=== PATIENT | male | born 1995 | race Asian ===

== ENCOUNTER 2022-08-31 10:34 | Outpatient (CLI) | payer OTHER, SELFPAY ==
[2022-08-31 13:50] LABS: Amphetamine Screen Urine Negative (Negative); Barbiturate Screen Urine Negative (Negative); Benzodiazepines Screen Urine Negative (Negative); Cannabinoid Screen Urine POSITIVE (Negative); Cocaine Screen Urine Negative (Negative); Methadone Screen Urine Negative (Negative); Methamphetamines Screen Urine Negative (Negative); Opiate Screen Urine Negative (Negative); Oxycodone Screen Urine Negative (Negative); Phencyclidine Screen Urine Negative (Negative); Tricyclic Antidepressant Urine Negative (Negative)
== END 2022-08-31 10:35 | disposition home or self-care (01) ==
LOC: FRMREF 10:36
PROVIDERS: PCP Family Medicine; Visit Provider Family Medicine
DX: R51.9 Headache, unspecified (principal); I10 Essential (primary) hypertension
CPT/HCPCS: 80306

== ENCOUNTER 2022-09-08 08:44 | Outpatient (CLI) | payer OTHER, MEDICAID, SELFPAY ==
--- NOTE | 2022-09-08 09:00 | CRLHL7_ITS ---
For Patients: As a result of the Century Cures Act, medical imaging exams and procedure reports are released immediately into your electronic medical record. You may view this report before your referring provider. If you have questions, please contact your health care provider. INDICATION: HEADACHES COMPARISON: none TECHNIQUE: A CT volumetric acquisition was performed of the brain without IV contrast. Please note that all CT scans at this facility use dose modulation, iterative reconstruction, and/or weight-based dosing when appropriate to reduce radiation dose to as low as reasonably achievable. FINDINGS: The CT images reveal a normal appearance of the cerebral ventricles and basal cisterns. There is no evidence of intracranial hemorrhage, tissue infarction or mass effect. The mastoid air cells and middle ear cavities are clear. The calvarium appears intact. Mild amount of mucus within the left sphenoid sinus noted. IMPRESSION: Normal CT brain. Left sphenoid sinus disease. Please note that all CT scans at this facility use dose modulation, iterative reconstruction, and/or weight-based dosing when appropriate to reduce radiation dose to as low as reasonably achievable. Dictated by Lacho Ceron MD @ 09/08/2022 9:30:25 AM (Electronically Signed)
== END 2022-09-08 08:45 | disposition home or self-care (01) ==
PROVIDERS: PCP Family Medicine; Visit Provider Family Medicine
DX: R51.9 Headache, unspecified (principal)
CPT/HCPCS: 70450

== ENCOUNTER 2023-10-07 14:38 | Emergency (ER) | payer MEDICAID, SELFPAY ==
[2023-10-07 14:48] VITALS: BP 163/82; PULSE 146; RESP 20; TEMP 37.3; O2SAT 97; BMI 25.8
--- NOTE | 2023-10-07 15:16 | ED.PSYCH ---
HPI - Psych General Chief Complaint: Psychiatric Problem/Disorder Stated Complaint: Suicidal Time Seen by Provider: 10/07/23 14:52 History of Present Illness HPI Narrative: This 28-year-old male comes in for psychiatric evaluation. He lost his arm in a traumatic accident about a year ago and has trouble dealing with this loss. Today he was rather impulsive and endorsed suicidal thoughts but no specific plan. However he did take a knife and hold it up next to his neck. He does not have any intent to harm others. He does take 5-7 alcohol drinks a week. 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 He has not taken his psychotropic medicines, buspirone and bupropion, for the past 6 months. He does state that he has anxiety. He reports that he is sleeping okay at night. He denies having any auditory or visual hallucinations. Related Data Home Medications Medication Instructions Recorded Confirmed amlodipine 5 mg tablet 5 mg PO QDAY 08/31/22 10/07/23 bupropion HCl 300 mg 24 hr tablet, tab PO 08/31/22 08/31/22 extended release buspirone 15 mg tablet 15 mg PO BID 08/31/22 10/07/23 losartan 100 1 tab PO QDAY 08/31/22 10/07/23 mg-hydrochlorothiazide 25 mg tablet pregabalin 75 mg capsule 75 mg PO BID 08/31/22 10/07/23 Previous Rx's Medication Instructions Recorded lorazepam 1 mg tablet (Ativan) 1 mg PO BID PRN #14 tabs 10/07/23 Allergies Allergy/AdvReac Type Severity Reaction Status Date / Time lisinopril AdvReac Severe cough Verified 08/31/22 10:09 amoxicillin AdvReac Severe diarrhea Uncoded 08/31/22 10:09 Review of Systems Status of ROS: Reports: 10 or more systems reviewed and unremarkable except as noted in History and below Narrative: Constitutional: No fevers, no weight gain or loss. Eyes: No discharge. No vision changes. HENT: No congestion, no sore throat, no ear pain. Cardiovascular: No chest pain, no palpitations. Respiratory: No shortness of breath, no wheezes, no cough. Gastrointestinal: No abdominal pain, no vomiting, no diarrhea. Genitourinary: No dysuria, no hematuria. Musculoskeletal: Normal range of motion. Skin: No rashes, no pruritis. Neurological: No dizziness, weakness, sensory change, speech change. Endo/Heme/Allergies: No bruising or bleeding. No polydipsia. Pysch: Suicidal thoughts as described above. He does report anxiety. No insomnia. All other systems reviewed and are negative. PFSH [facility] Social History Smoking Status: Never smoker How often do you have a drink containing alcohol: 4 or more times a week How many standard drinks containing alcohol do you have on a typical day: 1 or 2 AUDIT-C Alcohol total score: 4 Non-prescribed substance use: marijuana (any form) Non-prescribed substance use details: medical marijuana use Exam Narrative: Exam Narrative: Constitutional: Well-developed, well-nourished. HEENT: Normocephalic, atraumatic. Neck: Normal range of motion. Nontender. Supple. Heart: Regular. No murmurs. Normal rate. Intact distal pulses. Lungs: Clear to auscultation. No chest discomfort. No wheezes, rhonchi, or rales. Abdomen: Normal bowel sounds. Nontender. No rebound tenderness. Genitalia: Deferred. Back: No midline tenderness. Normal range of motion. Extremities: Normal range of motion. 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 Skin: Intact. No rash. Warm. No erythema or pallor. Neurologic: No altered sensation. No weakness. Alert and oriented. Psychiatric: Anxiety and depression with suicidal thoughts. Nursing notes and vitals signs are reviewed. Const: Vital Signs, click to edit/add: Vital Signs - 24 hr 10/07/23 14:48 Temperature 99.2 F Pulse Rate [Pulse Oximeter] 146 H Respiratory Rate 20 Blood Pressure [Ri ght Upper Arm] 163/82 H Pulse Oximetry 97 Oxygen Delivery Me thod Room Air Course Vital Signs Vital signs: Initial Vital Signs Temperature 99.2 F 10/07/23 14:48 Temperature Source Temporal Artery Scan 10/07/23 14:48 Pulse Rate 146 H 10/07/23 14:48 Pulse Rhythm Regular 10/07/23 14:48 Respiratory Rate 20 10/07/23 14:48 Blood Pressure 163/82 H 10/07/23 14:48 Blood Pressure Mean 109 H 10/07/23 14:48 Blood Pressure Position Sitting 10/07/23 14:48 Pulse Oximetry 97 10/07/23 14:48 Oxygen Delivery Method Room Air 10/07/23 14:48 Vital Signs Temperature 99.2 F 10/07/23 14:48 Pulse Rate 146 H 10/07/23 14:48 Respiratory Rate 20 10/07/23 14:48 Blood Pressure 163/82 H 10/07/23 14:48 Pulse Oximetry 97 10/07/23 14:48 Oxygen Delivery Method Room Air 10/07/23 14:48 Temperature 99.2 F 10/07/23 14:48 Pulse Rate 146 H 10/07/23 14:48 Respiratory Rate 10/07/23 14:48 Blood Pressure 163/82 H 10/07/23 14:48 Pulse Oximetry 97 10/07/23 14:48 Oxygen Delivery Method Room Air 10/07/23 14:48 Medications Administered Medications: Discontinued Medications Generic Name Dose Route Start Last Admin Trade Name Freq PRN Reason Stop Dose Admin Lorazepam 0.5 mg 10/07/23 15:15 10/07/23 15:22 Lorazepam 0.5 Mg Tablet PO 10/07/23 15:16 0.5 mg ONCE ONE Administration MDM - Psych MDM Narrative Medical decision making narrative: This patient the had a rather impulsive episode of suicidal thoughts as he is struggling with pre-existing depression and anxiety and now worsened with the loss of part of his left arm. Throughout his visit here he is pleasant and cooperative and is denying any further intent to harm himself. A [facility] mental assessment was ordered and completed. The patient does have connections for therapy. He is able to resume his medications. A conversation occurred with the patient's sister and significant other also. All were in agreement that he is okay to return home. The patient did receive a tablet of Ativan 0.5 mg which she states did not seem to make much difference. I did provide prescription for more of these but indicated that they do not mix with alcohol. He has medication at home that he can resume, namely a BuSpar and bupropion. Discharge Plan Discharge Clinical Impression: Anxiety, Depression Patient Disposition: Home w/ Parent or Adult Condition: Improved Additional Instructions: A resume BuSpar own and bupropion as prescribed. Take Ativan also as needed and directed for anxiety. Follow up with therapist and primary MD or return if worsening. Prescriptions: New lorazepam [Ativan] 1 mg tablet 1 mg PO BID PRNQty: 14 0RF No Action pregabalin 75 mg capsule 75 mg PO BID Hold Instructions: Pt not taking Patient Comments: TAKE 1 CAPSULE (75 MG) BY MOUTH TWICE DAILY.FAILED GABAPENTIN bupropion HCl 300 mg tablet extended release 24 hr PO Hold Instructions: Pt not taking buspirone 15 mg tablet 15 mg PO BID Hold Instructions: Pt not taking Patient Comments: TAKE 1 TABLET BY MOUTH TWICE A DAY losartan-hydrochlorothiazide 100-25 mg tablet 1 tab PO QDAY Hold Instructions: Pt not taking amlodipine 5 mg tablet 5 mg PO QDAY Hold Instructions: Not holding Follow Up/Referrals: Magdalena Dukes DO [Primary Care Provider] - Stand Alone Forms: [facility] Info Instructions
[2023-10-07] MEDS: LORazepam 0.5 MG TABLET PO (15:22)
--- NOTE | 2023-10-07 17:57 | ED.NURSE ---
Pt declines signing DEC's KADI to send to therapist. Pt signed safety plan, copy in medical record. VSS. Pt leaves with S.O. and sister.
[2023-10-07 17:58] VITALS: BP 176/88; PULSE 99; RESP 18; TEMP 37.3
== END 2023-10-07 17:59 | disposition home or self-care (01) ==
PROVIDERS: Emergency Provider Emergency Medicine Emergency Medical Services
DX: F32.A Depression, unspecified (principal); F41.8 Other specified anxiety disorders
CPT/HCPCS: 99283; 99284; A9270

== ENCOUNTER 2024-06-26 12:34 | Emergency (ER) | payer MEDICAID, OTHER, SELFPAY ==
[2024-06-26 12:40] VITALS: BP 177/111; PULSE 109; RESP 20; TEMP 37.2; O2SAT 99; BMI 24.3
--- NOTE | 2024-06-26 13:00 | ED.GENADULT ---
HPI - General Adult General Date Seen: 06/26/24 Chief complaint: Unspecified Complaint, Adult Stated complaint: Needlestick at work today Time Seen by Provider: 06/26/24 12:36 Source: patient Mode of arrival: ambulatory Limitations: no limitations History of Present Illness HPI narrative: Patient is a 29-year-old male presenting to the Emergency Department after a needle stick at work. 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 When he was putting this piece in the sharps container he accidentally poked himself on the finger with the needle portion. The container only had urine in it. He told his work what happened and came to the emergency department for evaluation. He is very anxious at this time Related Data Home Medications ?Medication ?Instructions ?Recorded ?Confirmed amlodipine 5 mg tablet 5 mg PO QDAY 08/31/22 10/07/23 bupropion HCl 300 mg 24 hr tablet, tab PO 08/31/22 08/31/22 extended release buspirone 15 mg tablet 15 mg PO BID 08/31/22 10/07/23 losartan 100 1 tab PO QDAY 08/31/22 10/07/23 mg-hydrochlorothiazide 25 mg tablet pregabalin 75 mg capsule 75 mg PO BID 08/31/22 10/07/23 Previous Rx's ?Medication ?Instructions ?Recorded lorazepam 1 mg tablet (Ativan) 1 mg PO BID PRN #14 tabs 10/07/23 Allergies Allergy/AdvReac Type Severity Reaction Status Date / Time lisinopril AdvReac Severe cough Verified 08/31/22 10:09 amoxicillin AdvReac Severe diarrhea Uncoded 08/31/22 10:09 Review of Systems Narrative: Pertinent systems reviewed and were negative unless stated in HPI PFSH PFSH Social History Smoking Status: Never smoker How often do you have a drink containing alcohol: 4 or more times a week How many standard drinks containing alcohol do you have on a typical day: 1 or 2 AUDIT-C Alcohol total score: 4 Non-prescribed substance use: marijuana (any form) Non-prescribed substance use details: medical marijuana use Exam Narrative: Exam Narrative: Const: Well-nourished, Well-developed, anxious Eyes: PERRL, no conjunctival injection, and symmetrical lids HENT: Atraumatic external nose and ears. Moist mucous membranes. MSK:Extremities w/o deformity, Normal Active ROM Skin: Warm, Dry. No rashes or lesions. Neuro: Normal Muscle tone, No focal neurological deficits. Psych: Awake, Alert, & Oriented x3. Appropriate mood and affect. Const: Vital Signs, click to edit/add: Vital Signs - 24 hr 06/26/24 12:40 Temperature 99 F Pulse Rate [Pulse Oximeter] 109 H Respiratory Rate 20 Blood Pressure [Ri ght Upper Arm] 177/111 H Pulse Oximetry 99 Oxygen Delivery Me thod Room Air Course Vital Signs Vital signs: Initial Vital Signs Temperature 99 F 06/26/24 12:40 Temperature Source Temporal Artery Scan 06/26/24 12:40 Pulse Rate 109 H 06/26/24 12:40 Respiratory Rate 20 06/26/24 12:40 Blood Pressure 177/111 H 06/26/24 12:40 Blood Pressure Mean 133 H 06/26/24 12:40 Pulse Oximetry 99 06/26/24 12:40 Oxygen Delivery Method Room Air 06/26/24 12:40 Vital Signs Temperature 99 F 06/26/24 12:40 Pulse Rate 109 H 06/26/24 12:40 Respiratory Rate 20 06/26/24 12:40 Blood Pressure 177/111 H 06/26/24 12:40 Pulse Oximetry 99 06/26/24 12:40 Oxygen Delivery Method Room Air 06/26/24 12:40 Temperature 99 F 06/26/24 12:40 Pulse Rate 109 H 06/26/24 12:40 Respiratory Rate 20 06/26/24 12:40 Blood Pressure 177/111 H 06/26/24 12:40 Pulse Oximetry 99 06/26/24 12:40 Oxygen Delivery Method Room Air 06/26/24 12:40 Medical Decision Making MDM Narrative Medical decision making narrative: Patient is a 29-year-old male presenting for a needlestick at work. HIV, hepatitis are all not transmitted through urine and he had no contact with the patient's blood. At This time it is not necessary to start him on post exposure prophylaxis for HIV. Lab work is also not necessary as it would likely be negative this soon after and also the disease we would test for again are not not transmitted through the urine. He will be discharged with information to follow up with his work and see what their guidelines are pain Discharge Plan Discharge Clinical Impression: Needlestick injury accident Patient Disposition: Home, Self-Care Condition: Stable Additional Instructions: HIV and hepatitis are not transmitted through urine. Speak to your work and see what their guidelines for needlestick are. Prescriptions: No Action pregabalin 75 mg capsule 75 mg PO BID Hold Instructions: Pt not taking Patient Comments: TAKE 1 CAPSULE (75 MG) BY MOUTH TWICE DAILY.FAILED GABAPENTIN bupropion HCl 300 mg tablet extended release 24 hr PO Hold Instructions: Pt not taking buspirone 15 mg tablet 15 mg PO BID Hold Instructions: Pt not taking Patient Comments: TAKE 1 TABLET BY MOUTH TWICE A DAY losartan-hydrochlorothiazide 100-25 mg tablet 1 tab PO QDAY Hold Instructions: Pt not taking amlodipine 5 mg tablet 5 mg PO QDAY Hold Instructions: Not holding lorazepam [Ativan] 1 mg tablet 1 mg PO BID PRNQty: 14 0RF Follow Up/Referrals: Provider,Not a Local [Primary Care Provider] - Stand Alone Forms: [employer] Info Instructions
== END 2024-06-26 13:28 | disposition home or self-care (01) ==
LOC: ED 13:06
PROVIDERS: Emergency Provider Student in an Organized Health Care Education/Training Program
DX: S69.90XA Unspecified injury of unspecified wrist, hand and finger(s), initial encounter (principal); W46.0XXA Contact with hypodermic needle, initial encounter
CPT/HCPCS: 99281; 99282